=== PATIENT | female | born 1970 | race Caucasian/White ===

== ENCOUNTER 2016-10-13 | Outpatient (CLI) | payer SELFPAY | END 2016-10-13 16:46 | disposition critical access hospital (66) | DX: R45.89 Other symptoms and signs involving emotional state (principal) | CPT/HCPCS: A0425; A0429 ==

== ENCOUNTER 2016-10-13 17:03 | Emergency (ER) | payer SELFPAY ==
[2016-10-13] MEDS ORDERED: LORazepam 0.5 MG TABLET PO STA (21:30)
[2016-10-13] MEDS ORDERED: LORazepam 0.5 MG TABLET ONE (21:39)
== END 2016-10-13 22:51 | disposition home or self-care (01) ==
DX: F10.120 Alcohol abuse with intoxication, uncomplicated (principal); F32.9 Major depressive disorder, single episode, unspecified
CPT/HCPCS: 36415; 80053; 80307; 80320; 80329; 83690; 85025; 99284; A9270